=== PATIENT | female | born 1990 | race Caucasian/White ===

== ENCOUNTER 2017-01-20 18:22 | Emergency (ER) | payer OTHER ==
[~2017-01-20] VITALS: Ht 154.9 cm; Wt 105.0 kg
[2017-01-20 18:23] VITALS: BP 170/85; PULSE 120; RESP 18; TEMP 98.4; O2SAT 99
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
== END 2017-01-20 21:07 | disposition home or self-care (01) ==
LOC: NEPK 18:22 → NEPD 21:07
DX: S93.602A Unspecified sprain of left foot, initial encounter (principal); V89.2XXA Person injured in unspecified motor-vehicle accident, traffic, initial encounter
CPT/HCPCS: 73630; 99283